=== PATIENT | male | born 1970 | race Hispanic/Latino ===

== ENCOUNTER 2016-12-15 10:36 | Emergency (ER) | payer BC, OTHER ==
[~2016-12-15] VITALS: Ht 177.8 cm; Wt 93.2 kg
[2016-12-15 11:22] LABS: BASO # 0.1 10^3/uL (0.0-0.2); BASO % 0.5 % (0.0-1.0); EOS # 0.1 10^3/uL (0.0-0.50); EOS % 0.5 % (0.0-3.0); IMMATURE GRANULOCYTE % 0.2 % (0-0); LYMPH # 2.4 10^3/uL (1.5-4.5); LYMPH % 24.4 % (24.0-44.0); MEAN CORPUSCULAR VOLUME 88.8 fl (80.0-96.0); MONO # 0.7 10^3/uL (0.0-0.8); MONO % 7.2 % (0.0-5.0); NEUTROPHILS # 6.6 10^3/uL (1.8-7.7); NEUTROPHILS % 67.2 % (36.0-66.0); PLATELET COUNT, AUTOMATED 331 10^3/uL (150-450); RED CELL DISTRIBUTION WIDTH 12.3 % (11.5-14.5); WHITE BLOOD COUNT 9.9 10^3/uL (4.0-10.0)
--- NOTE | 2016-12-15 11:22 | REP ---
Portable chest, 10:59 a.m., single AP view, patient sitting: Comparison is the PA and lateral chest dated 02/20/2013. The lung marques are clear. The cardiac size is normal. The sarmad, mediastinum, and bony thorax are unremarkable. Impression: Negative portable chest. There is no interval change. Signed by Raul Aguila MD 12/15/2016 11:13 A
[2016-12-15 11:49] LABS: ALBUMIN 3.8 GM/DL (3.2-5.2); ALBUMIN/GLOBULIN RATIO 1.06 (1.00-1.93); ALKALINE PHOSPHATASE 119 U/L (45-117); ALT/SGPT 39 U/L (12-78); ANION GAP 8 MEQ/L (8-16); AST/SGOT 33 U/L (15-37); BILIRUBIN,DIRECT 0.1 MG/DL (0.0-0.2); BILIRUBIN,TOTAL 0.4 MG/DL (0.2-1.0); BLOOD UREA NITROGEN 15 MG/DL (7-18); CALCIUM LEVEL 9.2 MG/DL (8.5-10.1); CARBON DIOXIDE LEVEL 26 MEQ/L (21-32); CHLORIDE LEVEL 98 MEQ/L (98-107); CREATININE FOR GFR 0.85 MG/DL (0.70-1.30); GLOMERULAR FILTRATION RATE > 60.0 (>60); GLUCOSE, FASTING 298 MG/DL (70-105); POTASSIUM SERUM 4.5 MEQ/L (3.5-5.1); SODIUM LEVEL 132 MEQ/L (136-145); TOTAL PROTEIN 7.4 GM/DL (6.4-8.2)
[2016-12-15] MEDS ORDERED: LISI40TAB PO (11:53)
[2016-12-15] MEDS ORDERED: HEPARIN DRIP 25,000 UNITS in APPROPRIATE DILUENT 1 EA IV SCH (12:13)
[2016-12-15] MEDS ORDERED: HEPARIN SOD (PORCINE) 5000 UNITS/ML VIAL IV ONE (12:15)
[2016-12-15] MEDS ORDERED: METOPROLOL TART 25 MG TABLET PO ONE (12:15)
[2016-12-15] MEDS ORDERED: ASPIRIN 81 MG CHEW TABLET PO ONE (12:15)
[2016-12-15] MEDS ORDERED: NITROGLYCERIN 2% OINT 1 GM *U/D* PKT TOP ONE (12:15)
[2016-12-15 12:32] VITALS: BP 152/97
[2016-12-15 12:47] LABS: INR 0.85
[2016-12-15 13:15] VITALS: BP 139/76
--- NOTE | 2016-12-16 08:20 | ECGEPIP ---
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
== END 2016-12-15 13:19 | disposition short-term general hospital (02) ==
LOC: M ED 10:36
DX: I21.3 ST elevation (STEMI) myocardial infarction of unspecified site (principal); E11.9 Type 2 diabetes mellitus without complications; I10 Essential (primary) hypertension; E78.5 Hyperlipidemia, unspecified; F17.200 Nicotine dependence, unspecified, uncomplicated; Z82.49 Family history of ischemic heart disease and other diseases of the circulatory system; Z79.899 Other long term (current) drug therapy; Z88.0 Allergy status to penicillin; Z91.041 Radiographic dye allergy status

== ENCOUNTER → 2017-01-20 | Outpatient (CLI) | payer BC ==
[~2017-01-20] MED LIST: LISI40TAB PO
[2017-01-20 08:26] LABS: MEAN CORPUSCULAR HEMOGLOBIN 31.2 pg (27.0-33.0); MEAN CORPUSCULAR HGB CONC 33.8 g/dl (32.0-36.5); MEAN CORPUSCULAR VOLUME 92.3 fl (80.0-96.0); PLATELET COUNT, AUTOMATED 381 10^3/uL (150-450); RED CELL DISTRIBUTION WIDTH 12.5 % (11.5-14.5); WHITE BLOOD COUNT 7.1 10^3/uL (4.0-10.0)
[2017-01-20 09:01] LABS: ALBUMIN 3.6 GM/DL (3.2-5.2); ALBUMIN/GLOBULIN RATIO 1.29 (1.00-1.93); ALKALINE PHOSPHATASE 94 U/L (45-117); ALT/SGPT 48 U/L (12-78); ANION GAP 7 MEQ/L (8-16); AST/SGOT 24 U/L (7-37); BILIRUBIN,TOTAL 0.3 MG/DL (0.2-1.0); BLOOD UREA NITROGEN 14 MG/DL (7-18); CARBON DIOXIDE LEVEL 25 MEQ/L (21-32); CHLORIDE LEVEL 110 MEQ/L (98-107); CHOLESTEROL LEVEL 127 MG/DL (<200); CREATININE FOR GFR 0.79 MG/DL (0.70-1.30); GLOMERULAR FILTRATION RATE > 60.0 (>60); GLUCOSE, FASTING 148 MG/DL (70-105); POTASSIUM SERUM 4.6 MEQ/L (3.5-5.1); SODIUM LEVEL 142 MEQ/L (136-145); THYROXINE (T4) 7.5 UG/DL (4.5-12.0); TOTAL PROTEIN 6.4 GM/DL (6.4-8.2); TRIGLYCERIDES LEVEL 177 MG/DL (<150)
--- NOTE | 2017-01-20 10:23 | REP ---
Duplex carotid sonography: History: Carotid bruit. Findings: Antegrade flow was observed in both vertebral arteries. Right carotid: The right common carotid artery shows mild soft plaquing. There is moderate mixed plaquing in the bulb and proximal ICA on the right side on two-dimensional scanning. Irregular possibly ulcerated plaquing is seen. Color flow and spectral Doppler interrogation are normal however. Velocity chart right carotid: Right CCA PSV 163 cm/s Right ICA PSV 123 EDV 43 Right ECA PSV 105 Right ICA/CCA ratio of 0.75. Impression: 16-49% category narrowing in the right ICA probably near the upper end of this range. Irregular possibly ulcerated plaque is seen in the right carotid bulb. Left carotid: Left common carotid artery shows a moderate mixed plaquing. There is moderate mixed plaquing in the bulb and proximal ICA on two-dimensional scanning and irregular ulcerated plaquing is suspected on the left as well. Color flow and spectral Doppler interrogation are unremarkable on the left. Velocity chart left carotid: Left CCA PSV 147 cm/s Left ICA PSV 108 EDV 35 Left ECA PSV 122 Left ICA/CCA ratio normal 0.73. Impression: 16-49% category narrowing in the left ICA by Doppler velocity criteria, probably near the upper end of this range. Irregular possibly ulcerated plaquing is seen. Signed by Tae Russ MD 01/20/2017 01:12 P
--- NOTE | 2017-01-21 11:05 | ECHO ---
DATE OF SERVICE: 01/20/2017 AGE: 46 REFERRING PROVIDER: Dr. Brittany Soriano PATIENT LOCATION: Outpatient. REASON FOR THE ECHOCARDIOGRAM: Heart murmur. 2D MEASUREMENTS: IVS: 0.9 cm LV: 4.6 cm LVPW: 0.9 cm LA: 3.7 cm Aorta: 3.0 cm IVC: 2.2 cm Trace pericardial effusion noted posteriorly. DOPPLER MEASUREMENTS: Peak velocity across the aortic valve: 1.6 m/s Peak velocity across the LVOT: 0.9 m/s Peak gradient across the aortic valve: 11 mmHg Mean gradient across the aortic valve: 16 mmHg Mitral E: 1.1 Mitral A: 0.8 with a ratio of 1.3 2D COMMENTS: 1. Normal left ventricular size, wall thickness, and normal global left ventricular systolic function. The estimated left ventricular systolic ejection fraction is 60% to 65%. 2. Normal left atrium. Normal right atrium and the right ventricle. 3. The atrial septum appeared to be normal without evidence of defect or shunt. 4. Normal aortic root. In the proximal descending thoracic aorta, there was a calcified structure with noted at that level that may be related to a history of coarctation of aorta. 5. No pericardial effusion seen. 6. Mildly calcified aortic valve with normal leaflet excursion. Mildly calcified mitral annulus with normal anterior mitral valve leaflet motion. Normal tricuspid valve and pulmonic valve. The proximal pulmonary artery branches were not well visualized. 7. The inferior vena cava was mildly enlarged, central venous pressure may be elevated. DOPPLER: It detects trace aortic regurgitation, trace to mild mitral regurgitation, and trace tricuspid regurgitation. The calculated pulmonary artery systolic pressure is most likely normal. Assessment of the left ventricular diastolic function appeared to be normal. There was a maximum gradient of 3.3 m/s across that structure noted at the level of the descending thoracic aorta and a peak gradient of 43 mmHg. IMPRESSION: 1. Normal global left ventricular systolic function. 2. Aortic valve sclerosis with trace aortic regurgitation but no significant aortic stenosis. 3. Mitral annulus calcification with trace to mild mitral regurgitation. 4. Trace tricuspid regurgitation. 5. Trace pericardial effusion was noted, no evidence of cardiac tamponade. 6. Possible coarctation of the aorta. This was discussed with the staff, and the referring provider will be contacted this coming Monday to clarify that diagnostic. The patient might need further evaluation, particularly if his blood pressure is uncontrolled.
== END ==
LOC: M RAD 08:01
PROVIDERS: ATTEND Family Medicine
DX: D64.9 Anemia, unspecified (principal); R53.83 Other fatigue; N40.0 Benign prostatic hyperplasia without lower urinary tract symptoms; R09.89 Other specified symptoms and signs involving the circulatory and respiratory systems; I65.22 Occlusion and stenosis of left carotid artery

== ENCOUNTER → 2017-01-20 | Outpatient (CLI) | payer BC | LOC: M CARPUL 08:54 | PROVIDERS: ATTEND Family Medicine | DX: R01.1 Cardiac murmur, unspecified (principal) ==

== ENCOUNTER 2019-01-11 12:02 | Emergency (ER) | payer BC ==
[~2019-01-11] VITALS: Ht 177.8 cm; Wt 92.7 kg
[~2019-01-11 12:02] MED LIST changes: +LISI40TA PO; -LISI40TAB PO
[2019-01-11] MEDS ORDERED: METF10004 PO (12:28)
[2019-01-11] MEDS ORDERED: DICL75TA PO (12:28)
[2019-01-11] MEDS ORDERED: ECOT81TA5 PO (12:28)
[2019-01-11] MEDS ORDERED: AMLO10TA5 PO (12:28)
[2019-01-11] MEDS ORDERED: PRED20TA PO (14:06)
[2019-01-11 14:15] VITALS: BP 135/76
== END 2019-01-11 14:15 | disposition home or self-care (01) ==
LOC: M ED 12:02
DX: M46.1 Sacroiliitis, not elsewhere classified (principal); I73.9 Peripheral vascular disease, unspecified; E11.9 Type 2 diabetes mellitus without complications; I25.10 Atherosclerotic heart disease of native coronary artery without angina pectoris; Z86.79 Personal history of other diseases of the circulatory system; F17.200 Nicotine dependence, unspecified, uncomplicated; Z79.82 Long term (current) use of aspirin; Z79.84 Long term (current) use of oral hypoglycemic drugs; Z79.899 Other long term (current) drug therapy; Z91.040 Latex allergy status; Z88.0 Allergy status to penicillin

== ENCOUNTER 2019-01-15 05:27 | Emergency (ER) | payer BC ==
[~2019-01-15] VITALS: Ht 177.8 cm; Wt 95.3 kg
[~2019-01-15 05:27] MED LIST changes: +AMLO10TA5 PO; +DICL75TA PO; +ECOT81TA5 PO; +METF10004 PO; +PRED20TA PO
[2019-01-15 05:52] LABS: BASO % 0.2 % (0.0-1.0); EOS % 0.1 % (0.0-3.0); HEMATOCRIT 45.6 % (42.0-52.0); HEMOGLOBIN 15.6 g/dl (13.5-17.5); LYMPH # 1.2 10^3/uL (1.5-5.0); LYMPH % 11.6 % (24.0-44.0); MEAN CORPUSCULAR HEMOGLOBIN 31.5 pg (27.0-33.0); MEAN CORPUSCULAR HGB CONC 34.2 g/dl (32.0-36.5); MEAN CORPUSCULAR VOLUME 91.9 fl (80.0-96.0); MONO # 0.6 10^3/uL (0.0-0.8); MONO % 5.8 % (0.0-5.0); NEUTROPHILS # 8.6 10^3/uL (1.5-8.5); NEUTROPHILS % 81.6 % (36.0-66.0); PLATELET COUNT, AUTOMATED 385 10^3/uL (150-450); RED BLOOD COUNT 4.96 10^6/uL (4.30-6.10); WHITE BLOOD COUNT 10.6 10^3/uL (4.0-10.0)
[2019-01-15] MEDS ORDERED: methylPREDNISolone INJ 125 MG/2 ML VIAL (J2930) IV ONE (06:00)
[2019-01-15] MEDS ORDERED: diphenhydrAMINE INJ 50MG/ML VIAL (J1200) IV ONE (06:00)
[2019-01-15 06:02] LABS: INR 0.94; PROTHROMBIN TIME 12.3 SECONDS (11.8-14.0)
[2019-01-15 06:03] LABS: PARTIAL THROMBOPLASTIN TIME 23.4 SECONDS (25.0-38.4)
[2019-01-15] MEDS ORDERED: ISOVUE-370 76% 100ML VIAL (Q9967) As Ordered ONE (06:15)
[2019-01-15 06:41] LABS: BLOOD UREA NITROGEN 13 MG/DL (7-18); CALCIUM LEVEL 9.2 MG/DL (8.5-10.1); CARBON DIOXIDE LEVEL 25 MEQ/L (21-32); CHLORIDE LEVEL 100 MEQ/L (98-107); CK-MB VALUE MASS 3.7 NG/ML (<3.6); CPK CREATINE PHOSPHOKINASE 85 U/L (39-308); CREATININE FOR GFR 0.78 MG/DL (0.70-1.30); GLOMERULAR FILTRATION RATE > 60.0 (>60); GLUCOSE, FASTING 331 MG/DL (70-100); MB/CK RELATIVE INDEX 4.35 (< OR =4); POTASSIUM SERUM 5.3 MEQ/L (3.5-5.1); SODIUM LEVEL 134 MEQ/L (136-145); TROPONIN I 0.12 NG/ML (< 0.10)
--- NOTE | 2019-01-15 06:51 | REPVR ---
PROCEDURE INFORMATION: Exam: CT Angiography Chest With Contrast Exam date and time: 01/15/2019 6:26 AM Clinical history: 48 years old, male; Right-sided chest pain; Prior surgery; Surgery date: 6+ months; Surgery type: Cardiac stents; Patient HX: PT allergic to iv contrast. PT was premedicated for this exam; Additional info: Right sided chest pain TECHNIQUE: Imaging protocol: Computed tomographic angiography of the chest with intravenous contrast. 3D rendering: MIP reconstructed images were created and reviewed. Radiation optimization: All CT scans at this facility use at least one of these dose optimization techniques: automated exposure control; mA and/or kV adjustment per patient size (includes targeted exams where dose is matched to clinical indication); or iterative reconstruction. Contrast material: ISOVUE 370; Contrast volume: 75 ml; Contrast route: IV; COMPARISON: CR PORTABLE CHEST X-RAY 01/15/2019 5:45 AM FINDINGS: Pulmonary arteries: Normal. No pulmonary emboli. Aorta: Moderate aortic atherosclerosis. Lungs: Left upper lobe indeterminate 11 mm pulmonary nodule. Scattered numerous tiny peripheral, some branching nodules within the lungs, likely infectious or inflammatory. Pleural space: Unremarkable. No pneumothorax. No pleural effusion. Heart: Unremarkable. No cardiomegaly. No pericardial effusion. Liver: Enlarged low attenuating liver, evidence of hepatic steatosis. Lymph nodes: Unremarkable. No enlarged lymph nodes. Bones/joints: Unremarkable. No acute fracture. Soft tissues: Unremarkable. IMPRESSION: 1. Left upper lobe indeterminate 11 mm pulmonary nodule. Recommend followup. 2. Scattered numerous tiny peripheral, some branching nodules within the lungs, likely infectious or inflammatory. COMMENT: As per Fleischner Society guidelines for follow-up and management of pulmonary nodules: Recommend initial follow-up chest CT at 3, 9 and 24 months. Consider contrast enhanced chest CT, PET scan and/or biopsy as clinically warranted. Electronically signed by: Mario Alberto Montero On 01/15/2019 06:51:03 AM
--- NOTE | 2019-01-15 07:05 | REP ---
Portable chest, 05:48 a.m., single AP view with the patient upright: Comparison is 12/15/2016. The lung marques are clear. The cardiac size is normal. The sarmad, mediastinum, and skeletal structures are unremarkable. Impression: Negative portable chest. There is no interval change. Electronically Signed by Raul Aguila MD 01/15/2019 06:57 A
[2019-01-15 08:36] LABS: MB/CK RELATIVE INDEX 6.8 (< OR =4); TROPONIN I 0.67 NG/ML (< 0.10)
[2019-01-15] MEDS ORDERED: HEPARIN DRIP 25,000 UNITS in IV 1 EA IV SCH (08:44)
[2019-01-15] MEDS ORDERED: HEPARIN SOD (PORCINE) 5000 UNITS/ML VIAL IV ONE (08:45)
[2019-01-15] MEDS ORDERED: CLOPIDOGREL 300 MG TAB (PLAVIX) PO ONE (09:00)
--- NOTE | 2019-01-15 09:04 | ED PDOC ---
Post-Departure Follow-Up radiology reports faxed to Krystin Barrios MD Jan 15, 2019 09:04
[2019-01-15 09:43] VITALS: BP 107/68
--- NOTE | 2019-01-16 05:34 | ECGEPIP ---
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
--- NOTE | 2019-01-16 05:35 | ECGEPIP ---
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
== END 2019-01-15 09:48 | disposition short-term general hospital (02) ==
LOC: M ED 05:27
DX: I24.9 Acute ischemic heart disease, unspecified (principal); R00.0 Tachycardia, unspecified; I45.89 Other specified conduction disorders; I77.89 Other specified disorders of arteries and arterioles; R91.8 Other nonspecific abnormal finding of lung field; I25.10 Atherosclerotic heart disease of native coronary artery without angina pectoris; I25.2 Old myocardial infarction; E11.9 Type 2 diabetes mellitus without complications; I10 Essential (primary) hypertension; E78.5 Hyperlipidemia, unspecified; I73.9 Peripheral vascular disease, unspecified; Z95.5 Presence of coronary angioplasty implant and graft; F17.200 Nicotine dependence, unspecified, uncomplicated; Z79.84 Long term (current) use of oral hypoglycemic drugs; Z79.899 Other long term (current) drug therapy; Z79.82 Long term (current) use of aspirin; Z91.041 Radiographic dye allergy status; Z88.0 Allergy status to penicillin
CPT/HCPCS: 71045; 71275; 80047; 80048; 82550; 82553; 84484; 85025; 85610; 85730; 93005; 93041; 94760; 96374; 96375; 99285; J1200; J2930; Q9967

== ENCOUNTER → 2019-01-30 | Outpatient (CLI) | payer BC ==
[~2019-01-30] MED LIST changes: +CARV3.12 PO; +CLOP75TA2 PO; +VARE1TA PO
--- NOTE | 2019-01-30 09:41 | REP ---
Two-view chest: 01/30/2019. Indication: Preoperative assessment. Comparison: 01/15/2019. Findings: The recently described left upper lobe pulmonary nodule is better demonstrated by CT technique. There is no air space consolidation, pleural effusion or pneumothorax. The cardiac silhouette is unremarkable. Impression: No acute cardiopulmonary process. Electronically Signed by Jv Solis DO 01/30/2019 09:32 A
[2019-01-30 10:21] LABS: HEMATOCRIT 44.1 % (42.0-52.0); HEMOGLOBIN 14.6 g/dl (13.5-17.5); MEAN CORPUSCULAR HEMOGLOBIN 31.1 pg (27.0-33.0); MEAN CORPUSCULAR HGB CONC 33.1 g/dl (32.0-36.5); MEAN CORPUSCULAR VOLUME 93.8 fl (80.0-96.0); PLATELET COUNT, AUTOMATED 412 10^3/uL (150-450); WHITE BLOOD COUNT 9.9 10^3/uL (4.0-10.0)
[2019-01-30 10:33] LABS: PROTHROMBIN TIME 12.9 SECONDS (11.8-14.0)
[2019-01-30 10:46] LABS: HEMOGLOBIN A1c 8.5 %
[2019-01-30 10:53] LABS: ALBUMIN 3.4 GM/DL (3.2-5.2); ALT/SGPT 53 U/L (12-78); BILIRUBIN,TOTAL 0.4 MG/DL (0.2-1.0); BLOOD UREA NITROGEN 12 MG/DL (7-18); CARBON DIOXIDE LEVEL 24 MEQ/L (21-32); CHLORIDE LEVEL 104 MEQ/L (98-107); CHOLESTEROL LEVEL 152 MG/DL (<200); CHOLESTEROL RISK RATIO 3.619 (<5); CREATININE FOR GFR 1.07 MG/DL (0.70-1.30); GLOMERULAR FILTRATION RATE > 60.0 (>60); GLUCOSE, FASTING 203 MG/DL (70-100); HDL CHOLESTEROL 42 MG/DL (>40); LDL CHOLESTEROL 89 MG/DL (<100); NON-HDL-C 110 MG/DL; POTASSIUM SERUM 5.2 MEQ/L (3.5-5.1); PROSTATIC SPECIFIC AG MONITOR 1.99 NG/ML (< 4.00); SODIUM LEVEL 137 MEQ/L (136-145); THYROXINE (T4) 6.7 UG/DL (4.5-12.0); TOTAL PROTEIN 6.6 GM/DL (6.4-8.2); TRIGLYCERIDES LEVEL 106 MG/DL (<150)
[2019-01-30 10:54] LABS: TOTAL T3 89.4 NG/DL (60.0-181.0)
--- NOTE | 2019-02-01 01:00 | ECGEPIP ---
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 MILD IVCD ST DEVIATION AND MODERATE T-WAVE ABNORMALITY, CONSIDER ANTEROLATERAL ISCHEMIA ST DEVIATION AND MODERATE T-WAVE ABNORMALITY, CONSIDER INFERIOR ISCHEMIA PRIOR TRACING ON 01/15/2019 AT 7:53 A.M., NO SIGNIFICANT CHANGES Electronically Signed on 02-01-2019 1:00:04 EST by Mendez Veloz
== END ==
LOC: M LAB 08:34
PROVIDERS: ATTEND Family Medicine
DX: Z01.818 Encounter for other preprocedural examination (principal); I10 Essential (primary) hypertension; I49.3 Ventricular premature depolarization

== ENCOUNTER 2019-01-31 08:03 | Emergency (ER) | payer BC ==
[~2019-01-31] VITALS: Ht 177.8 cm; Wt 92.7 kg
[~2019-01-31 08:03] MED LIST changes: -CARV3.12 PO; -CLOP75TA2 PO; -VARE1TA PO
[2019-01-31] MEDS ORDERED: CARV3.12 PO (08:10)
[2019-01-31] MEDS ORDERED: VARE1TA PO (08:10)
[2019-01-31] MEDS ORDERED: CLOP75TA2 PO (08:10)
[2019-01-31 08:38] LABS: BASO # 0.1 10^3/uL (0.0-0.2); BASO % 0.7 % (0.0-1.0); EOS # 0.1 10^3/uL (0.0-0.5); EOS % 1.2 % (0.0-3.0); HEMATOCRIT 42.6 % (42.0-52.0); HEMOGLOBIN 14.4 g/dl (13.5-17.5); LYMPH # 2.4 10^3/uL (1.5-5.0); LYMPH % 22.9 % (24.0-44.0); MEAN CORPUSCULAR HEMOGLOBIN 31.8 pg (27.0-33.0); MEAN CORPUSCULAR HGB CONC 33.8 g/dl (32.0-36.5); MONO # 0.6 10^3/uL (0.0-0.8); MONO % 5.4 % (0.0-5.0); NEUTROPHILS # 7.1 10^3/uL (1.5-8.5); NEUTROPHILS % 68.8 % (36.0-66.0); PLATELET COUNT, AUTOMATED 386 10^3/uL (150-450); RED BLOOD COUNT 4.53 10^6/uL (4.30-6.10); WHITE BLOOD COUNT 10.3 10^3/uL (4.0-10.0)
[2019-01-31 08:46] LABS: INR 0.96; PROTHROMBIN TIME 12.5 SECONDS (11.8-14.0)
[2019-01-31 08:47] LABS: PARTIAL THROMBOPLASTIN TIME 28.2 SECONDS (25.0-38.4)
--- NOTE | 2019-01-31 08:50 | REP ---
Single view chest: 01/31/2019. Indication: Dyspnea. Comparison: Yesterday. Findings: The lungs are clear. There is no pleural effusion or pneumothorax. The cardiomediastinal silhouette is unremarkable. The left upper lobe pulmonary nodule is better demonstrated on the recent CT. Impression: No acute cardiopulmonary process. Electronically Signed by Jv Solis DO 01/31/2019 08:42 A
[2019-01-31] MEDS ORDERED: PANTOPRAZOLE 40MG INJ (PROTONIX) (C9113) IV SCH (09:00)
[2019-01-31 09:27] LABS: ALBUMIN 3.4 GM/DL (3.2-5.2); ALT/SGPT 48 U/L (12-78); BILIRUBIN,DIRECT 0.1 MG/DL (0.0-0.2); BILIRUBIN,TOTAL 0.4 MG/DL (0.2-1.0); BLOOD UREA NITROGEN 12 MG/DL (7-18); CALCIUM LEVEL 8.7 MG/DL (8.5-10.1); CARBON DIOXIDE LEVEL 21 MEQ/L (21-32); CHLORIDE LEVEL 106 MEQ/L (98-107); CK-MB VALUE MASS 3.3 NG/ML (<3.6); CPK CREATINE PHOSPHOKINASE 71 U/L (39-308); CREATININE FOR GFR 1.08 MG/DL (0.70-1.30); GLOMERULAR FILTRATION RATE > 60.0 (>60); GLUCOSE, FASTING 220 MG/DL (70-100); LIPASE 127 U/L (73-393); MB/CK RELATIVE INDEX 4.65 (< OR =4); NT-PRO BNP 2005 PG/ML (<125); POTASSIUM SERUM 5.7 MEQ/L (3.5-5.1); SODIUM LEVEL 135 MEQ/L (136-145); TOTAL PROTEIN 6.7 GM/DL (6.4-8.2); TROPONIN I 0.02 NG/ML (< 0.10)
[2019-01-31] MEDS ORDERED: NS 500 ML IV ONE (10:15)
[2019-01-31 12:10] VITALS: BP 87/58
[2019-01-31 12:25] VITALS: BP 96/70
[2019-01-31 12:55] VITALS: BP 89/55
[2019-01-31 13:13] VITALS: BP 89/55
--- NOTE | 2019-02-01 12:59 | ECGEPIP ---
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
== END 2019-01-31 13:14 | disposition home or self-care (01) ==
LOC: M ED 08:03 → UNDOADMIN 11:11 → M ED INP 11:11 → UNDODISIN 13:14 → M ED 13:14
DX: K92.2 Gastrointestinal hemorrhage, unspecified (principal); D62 Acute posthemorrhagic anemia; R94.31 Abnormal electrocardiogram [ECG] [EKG]; R06.00 Dyspnea, unspecified; I11.9 Hypertensive heart disease without heart failure; I25.10 Atherosclerotic heart disease of native coronary artery without angina pectoris; I25.2 Old myocardial infarction; E11.9 Type 2 diabetes mellitus without complications; E78.5 Hyperlipidemia, unspecified; F17.210 Nicotine dependence, cigarettes, uncomplicated; Z95.5 Presence of coronary angioplasty implant and graft; Z88.0 Allergy status to penicillin; Z91.041 Radiographic dye allergy status
CPT/HCPCS: 36415; 36430; 71045; 80048; 80076; 82550; 82553; 83690; 83880; 84484; 85025; 85610; 85730; 86850; 86900; 86901; 86920; 93005; 93041; 96374; 99285; C9113; P9016

== ENCOUNTER 2019-02-06 19:37 | Emergency (ER) | payer BC ==
[~2019-02-06] VITALS: Ht 177.8 cm; Wt 87.3 kg
[~2019-02-06 19:37] MED LIST changes: +CARV3.12 PO; +CLOP75TA2 PO; +VARE1TA PO
[2019-02-06 20:15] LABS: BASO % 0.4 % (0.0-1.0); EOS # 0.2 10^3/uL (0.0-0.5); EOS % 2.2 % (0.0-3.0); HEMATOCRIT 27.9 % (42.0-52.0); HEMOGLOBIN 9.4 g/dl (13.5-17.5); LYMPH # 2.6 10^3/uL (1.5-5.0); LYMPH % 36.3 % (24.0-44.0); MEAN CORPUSCULAR HEMOGLOBIN 31.5 pg (27.0-33.0); MEAN CORPUSCULAR HGB CONC 33.7 g/dl (32.0-36.5); MEAN CORPUSCULAR VOLUME 93.6 fl (80.0-96.0); MONO # 0.5 10^3/uL (0.0-0.8); MONO % 6.8 % (0.0-5.0); NEUTROPHILS # 3.9 10^3/uL (1.5-8.5); NEUTROPHILS % 53.3 % (36.0-66.0); PLATELET COUNT, AUTOMATED 319 10^3/uL (150-450); RED BLOOD COUNT 2.98 10^6/uL (4.30-6.10); WHITE BLOOD COUNT 7.2 10^3/uL (4.0-10.0)
[2019-02-06 20:27] LABS: INR 1.08; PROTHROMBIN TIME 13.7 SECONDS (11.8-14.0)
[2019-02-06 20:42] LABS: ALBUMIN 3.3 GM/DL (3.2-5.2); ALT/SGPT 35 U/L (12-78); BILIRUBIN,DIRECT < 0.1 MG/DL (0.0-0.2); BILIRUBIN,TOTAL 0.3 MG/DL (0.2-1.0); CK-MB VALUE MASS 22.7 NG/ML (<3.6); CPK CREATINE PHOSPHOKINASE 261 U/L (39-308); LIPASE 125 U/L (73-393); TOTAL PROTEIN 6.1 GM/DL (6.4-8.2); TROPONIN I 3.99 NG/ML (< 0.10)
[2019-02-06] MEDS: MORPHINE 4 MG/ML 1ML VIAL/SYRINGE (J2270) IV ONE (21:00)
[2019-02-06] MEDS ORDERED: NS 1,000 ML IV ONE (21:45)
[2019-02-06] MEDS ORDERED: DOPamine HCL 400 MG in IV 1 EA IV SCH (21:45)
[2019-02-06 22:02] VITALS: BP 77/53
--- NOTE | 2019-02-07 00:05 | ECGEPIP ---
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
--- NOTE | 2019-02-07 06:27 | REP ---
Clinical: Chest pain . Comparison: 01/31/2019 . Findings: The mediastinum and cardiac silhouette are stable and within normal limits for portable technique. No focal consolidation, effusion, or pneumothorax. Subtle basilar atelectasis cannot be excluded. Skeletal structures are intact. Impression: Cannot exclude subtle basilar atelectasis. No focal consolidation or effusion. Electronically Signed by Waqar Ling MD 02/07/2019 06:18 A
== END 2019-02-06 22:21 | disposition short-term general hospital (02) ==
LOC: M ED 19:37
DX: I21.4 Non-ST elevation (NSTEMI) myocardial infarction (principal); I45.89 Other specified conduction disorders; I51.9 Heart disease, unspecified; I10 Essential (primary) hypertension; Z95.5 Presence of coronary angioplasty implant and graft; F17.200 Nicotine dependence, unspecified, uncomplicated; Z87.19 Personal history of other diseases of the digestive system; Z82.49 Family history of ischemic heart disease and other diseases of the circulatory system; Z79.82 Long term (current) use of aspirin; Z79.899 Other long term (current) drug therapy; Z91.040 Latex allergy status; Z88.0 Allergy status to penicillin
CPT/HCPCS: 71045; 80047; 80076; 82550; 82553; 83690; 84484; 85025; 85610; 86850; 86900; 86901; 93005; 93041; 94760; 96365; 96375; 99285; J1265; J2270